=== PATIENT | female | born 1975 | race Two or more races ===

== ENCOUNTER 2017-10-18 06:00 | Day surgery (SDC) | payer OTHER | END 2017-10-18 15:30 | disposition home or self-care (01) | LOC: CIR.AMB 06:00 | DX: O02.1 Missed abortion (principal) ==

== ENCOUNTER 2017-12-27 06:33 | Day surgery (SDC) | payer OTHER | END 2017-12-27 17:20 | disposition home or self-care (01) | LOC: CIR.AMB 06:33 | DX: N84.0 Polyp of corpus uteri (principal) ==